=== PATIENT | female | born 1960 | race Caucasian/White ===

== ENCOUNTER 2020-12-11 10:21 | Emergency (ER) | payer OTHER, SELFPAY ==
[2020-12-11 10:33] VITALS: BP 187/96; PULSE 73; RESP 16; TEMP 36.6; O2SAT 99; BMI 23.6
[2020-12-11 11:50] LABS: Add Manual Diff / Slide Review NO; Basophils Absolute Auto 100 /uL (0-100); Basophils Percent Auto 0.9 % (0-2); Eosinophils Absolute Auto 0 /uL (0-450); Eosinophils Percent Auto 0.6 % (2-4); Hematocrit 45.4 % (36-46); Hemoglobin 15.2 g/dL (12.0-16.0); Lymphocytes Absolute Auto 1400 /uL (1100-4500); Lymphocytes Percent Auto 20.3 % (25-40); Mean Corpuscular HGB Conc 33.4 % (30-36); Mean Corpuscular Hemoglobin 28.1 PG (26-34); Mean Corpuscular Volume 84.1 fL (80-100); Monocytes Absolute Auto 600 /uL (0-900); Monocytes Percent Auto 8.9 % (3-14); Neutrophils Absolute Auto 4700 /uL (1500-7000); Neutrophils Percent Auto 69.3 % (50-75); Platelet Count 282 X10^3/uL (150-400); Red Cell Distribution Width 12.9 % (11.6-14.8); White Blood Cell Count 6.7 X10^3/uL (4.5-11.0)
[2020-12-11 11:55] LABS: INR 1.1 (0.9-1.3); Prothrombin Time 12.3 SECONDS (10.1-12.7)
[2020-12-11 11:58] LABS: PTT Partial Thromboplastin Tim 34 SECONDS (26.4-36.2)
[2020-12-11 12:02] LABS: Alanine Aminotransferase 25 IU/L (<35); Albumin 4.6 g/dL (3.5-5.0); Albumin Globulin Ratio 1.4 (1.0-2.8); Alkaline Phosphatase 95 U/L (38-126); Aspartate Aminotransferase 37 IU/L (14-36); BUN Creatinine Ratio 16.7 (6-22); Bilirubin Total 0.7 mg/dL (0.2-1.3); Blood Urea Nitrogen 12 mg/dL (7-17); Calcium 9.6 mg/dL (8.4-10.2); Carbon Dioxide 27 mmol/L (22-32); Chloride 102 mmol/L (98-107); Estimated Glomerular Filt Rate > 60.0 mL/min (>60); Globulin 3.2 g/dL (1.7-4.1); Glucose 107 mg/dL (80-110); HEMOLYSIS 18 (0-50); Lipase 104 U/L (23-300); Potassium 3.7 mmol/L (3.4-5.1); Sodium 137 mmol/L (137-145); Total Protein 7.8 g/dL (6.3-8.2)
--- NOTE | 2020-12-11 12:51 | DI.CT.S_ITS ---
PROCEDURE: CT ABDOMEN PELVIS W CON INDICATIONS: rlq pain at night TECHNIQUE: After the administration of intravenous contrast, 5 mm thick sections acquired from the diaphragm to the symphysis. 5 mm coronal and sagittal reformats were acquired. For radiation dose reduction, the following was used: automated exposure control, adjustment of mA and/or kV according to patient size. COMPARISON: None. FINDINGS: Image quality: Excellent. ABDOMEN: Lung bases: Lung bases are clear. Heart size is normal. Solid organs: Liver is diffusely decreased in attenuation without focal mass lesion.. Gallbladder unremarkable. Biliary system is non dilated. Pancreas enhances normally. Spleen is normal in size and enhancement. No adrenal nodules. Kidneys demonstrate normal size and enhancement, without hydronephrosis. Small 8 mm right renal cortical cyst. Peritoneum and bowel: Bowel loops demonstrate normal wall thickness and caliber. No free fluid or air. Normal appendix identified. Nodes and vessels: No retroperitoneal or mesenteric adenopathy by size criteria. Aorta and inferior vena cava are normal in size. Miscellaneous: No ventral hernias. PELVIS: Genitourinary: Bladder wall thickness is normal. Miscellaneous: No inguinal hernias or adenopathy. Bones: No suspicious bony lesions. No vertebral body compression fractures. L4-5 and L5-S1 degenerative disc disease and endplate sclerosis noted IMPRESSION: No acute CT abdominal or pelvic findings. Normal appendix noted without evidence of appendicitis. Incidental hepatic fatty infiltration and degenerative disc disease and lower lumbar spine Dictated by: Tim Zarate M.D. on 12/11/2020 at 12:35 Approved by: Tim Zarate M.D. on 12/11/2020 at 12:42
--- NOTE | 2020-12-11 14:36 | ED.ABDPAIN ---
HPI - Abdominal Pain <CRISTIAN Lopez - Last Filed: 12/11/20 15:10> General Chief Complaint: Abdominal Pain Stated Complaint: right side pain Time Seen by Provider: 12/11/20 12:11 Source: patient Mode of arrival: Ambulatory Limitations: no limitations History of Present Illness HPI narrative: The patient is a 60-year-old female nonsmoker denies pertinent medical history presents with a chief complaint of right lower quadrant pain at night only. She states this started on , she has severe pain at night only in her right lower quadrant and that is pain-free during the day. She has not taken anything for the pain she denies any fevers nausea vomiting or diarrhea. She denies any abdominal surgical history she denies any dysuria urgency or frequency. She denies any fevers muscle aches or chills. She states she does not go see a primary care provider and avoids medical care. She comes in with a friend who works as an EMT who ?dragged me here. Related Data Home Medications Medication Instructions Recorded Confirmed No Known Home Medications 12/11/20 12/11/20 Allergies Allergy/AdvReac Type Severity Reaction Status Date / Time oxycodone Allergy Intermediate Vomiting Verified 12/11/20 10:37 Review of Systems <BERTRAND Lopez - Last Filed: 12/11/20 15:10> Review of Systems Narrative: GENERAL: Denies chills, fatigue, malaise, fever, sweats. HEENT: Denies sinus pain, ear pain, sore throat, difficulty swallowing, dizziness. RESPIRATORY: Denies dyspnea, cough, wheezing, hemoptysis, sputum. CARDIOVASCULAR: Denies chest pain, palpitations, orthopnea, edema, GASTROINTESTINAL: See HPI : Denies dysuria, frequency, incontinence, hematuria, urinary retention. MUSCULOSKELETAL: denies weakness, joint pain, or bony pain SKIN: Denies rash, skin lesions, or other NEUROLOGIC: Denies weakness, headache, numbness, change in speech, confusion, seizures, incoordination. PSYCHIATRIC: No concerning psychosocial issues. 12 point review of systems is negative except for those stated above Patient History <BERTRAND Lopez - Last Filed: 12/11/20 15:10> Social History Smoking Status: Never smoker Smoking Status: Never smoker alcohol intake frequency: 0-2 drinks per day Substance Use Type: does not use Exam <CRISTIAN Lopez - Last Filed: 12/11/20 15:10> Narrative Exam Narrative: GENERAL: This is a well-nourished, well-developed patient, in no acute distress HEAD: Atraumatic. Normocephalic. No temporal or scalp tenderness. EYES: Pupils equal round and reactive. Extraocular motions intact. No scleral icterus. No injection or drainage. ENT: Nose without bleeding, purulent drainage or septal hematoma.. Airway patent. NECK: Trachea midline. No JVD or lymphadenopathy. Supple, nontender, no meningeal signs. CARDIOVASCULAR: Regular rate and rhythm RESPIRATORY: Clear to auscultation. Breath sounds equal bilaterally. No wheezes, rales, or rhonchi. No cough. No increased respiratory effort. No accessory muscle use. GASTROINTESTINAL: Abdomen soft, non-tender, nondistended. No hepato-splenomegaly, or palpable masses. No guarding. Active bowel sounds all 4 quadrants negative Pak sign EXTREMITIES: No clubbing, cyanosis, or edema. No joint tenderness, effusion, or edema noted. BACK: Nontender without deformity or crepitance. No flank tenderness. No CVA tenderness. NEURO: AOx3. SKIN: No rash or erythema on visible skin Initial Vital Signs Initial Vital Signs: Vital Signs Temperature 97.8 F 12/11/20 10:33 Pulse Rate 73 12/11/20 10:33 Respiratory Rate 16 12/11/20 10:33 Blood Pressure 187/96 H 12/11/20 10:33 Pulse Oximetry 99 12/11/20 10:33 <Tamar Quintanilla DO - Last Filed: 12/11/20 19:46> Initial Vital Signs Initial Vital Signs: Vital Signs Temperature 97.8 F 12/11/20 10:33 Pulse Rate 73 12/11/20 10:33 Respiratory Rate 16 12/11/20 10:33 Blood Pressure 187/96 H 12/11/20 10:33 Pulse Oximetry 99 12/11/20 10:33 Scores <CRISTIAN Lopez - Last Filed: 12/11/20 15:10> GCS [place] coma scale eye opening: Spontaneous [place] coma scale verbal response: Orientated [place] coma scale motor response: Obey commands [place] coma scale total score: 15 Course <CRISTIAN Lopez - Last Filed: 12/11/20 15:10> Orders Ordered: ED Orders 12/11/20 11:31 EKG-12 Lead Stat 12/11/20 11:40 Complete Blood Count AUTO DIFF Stat Comprehensive Metabolic Panel Stat Lipase Stat Partial Thromboplastin Time Stat Prothrombin Time INR Stat 12/11/20 12:51 CT abdomen pelvis w con Stat Vital Signs Vital signs: Vital Signs - 8 hr 12/11/20 14:52 Temperature 98.8 F Pulse Rate 78 Respiratory Rate 16 Blood Pressure 132/86 Pulse Oximetry 96 <Tamar Quintanilla DO - Last Filed: 12/11/20 19:46> Orders Ordered: ED Orders 12/11/20 11:31 EKG-12 Lead Stat 12/11/20 11:40 Complete Blood Count AUTO DIFF Stat Comprehensive Metabolic Panel Stat Lipase Stat Partial Thromboplastin Time Stat Prothrombin Time INR Stat 12/11/20 12:51 CT abdomen pelvis w con Stat Vital Signs Vital signs: Vital Signs - 8 hr 12/11/20 14:52 Temperature 98.8 F Pulse Rate 78 Respiratory Rate 16 Blood Pressure 132/86 Pulse Oximetry 96 MDM - Abdominal Pain <INDER Lopez-BC - Last Filed: 12/11/20 15:10> Lab Data Attestation: I reviewed the patient's lab results. Result diagrams: 12/11/20 11:40 12/11/20 11:40 Labs: Lab Results 12/11/20 12/11/20 12/11/20 Range/Units 11:40 11:40 11:40 WBC 6.7 (4.5-11.0) X10^3/uL RBC 5.40 H (4.0-5.2) X10^6/uL Hgb 15.2 (12.0-16.0) g/dL Hct 45.4 (36-46) % MCV 84.1 (80-100) fL MCH 28.1 (26-34) PG MCHC 33.4 (30-36) % RDW 12.9 (11.6-14.8) % Plt Count 282 (150-400) X10^3/uL Neut % (Auto) 69.3 (50-75) % Lymph % (Auto) 20.3 L (25-40) % Cataño % (Auto) 8.9 (3-14) % Eos % (Auto) 0.6 L (2-4) % Baso % (Auto) 0.9 (0-2) % Neut # (Auto) 4700 (2832-3504) /uL Lymph # (Auto) 1400 (2846-2792) /uL [place]ata[place] # (Auto) 600 (0-900) /uL Eos # (Auto) 0 (0-450) /uL Baso # (Auto) 100 (0-100) /uL PT 12.3 (10.1-12.7) SECONDS INR 1.1 (0.9-1.3) APTT 34 (26.4-36.2) SECONDS Sodium 137 (137-145) mmol/L Potassium 3.7 (3.4-5.1) mmol/L Chloride 102 (98-107) mmol/L Carbon Dioxide 27 (22-32) mmol/L BUN 12 (7-17) mg/dL Creatinine 0.72 (0.52-1.04) mg/dL Estimated GFR > 60.0 (>60) mL/min BUN/Creatinine Ratio 16.7 (6-22) Glucose 107 (80-110) mg/dL Calcium 9.6 (8.4-10.2) mg/dL Total Bilirubin 0.7 (0.2-1.3) mg/dL AST 37 H (14-36) IU/L ALT 25 (<35) IU/L Alkaline Phosphatase 95 (38-126) U/L Total Protein 7.8 (6.3-8.2) g/dL Albumin 4.6 (3.5-5.0) g/dL Globulin 3.2 (1.7-4.1) g/dL Albumin/Globulin Ratio 1.4 (1.0-2.8) Lipase 104 (23-300) U/L Point of care testing: Urine Dip Bedside Urine Glucose Negative Bedside Urine Bilirubin - Negative Bedside Urine Ketone - Negative Urine Specific [place] 1.015 Bedside Urine Occult Blood - Negative Bedside Urine pH 6 Bedside Urine Protein - Negative Bedside Urine Urobilinogen - Negative Bedside Urine Nitrite - Negative Bedside Urine Leukocytes - Negative Esterase Imaging Data CT scan - abdomen/pelvis: Radiologist's Impression: [address] [place] [address] [id number] Scan ReportSigned Patient: Zenia Ramires [facility]#: [id number]: 1960Acct:[id number]/Sex: 60 / FDate of Service: 12/11/20Loc: EDAccession Number: [id number] Procedure: CT abdomen pelvis w con Ordering Provider: Colette ParraBC PROCEDURE: CT ABDOMEN PELVIS W CON INDICATIONS: rlq pain at night TECHNIQUE: After the administration of intravenous contrast, 5 mm thick sections acquired from the diaphragm to the symphysis. 5 mm coronal and sagittal reformats were acquired. For radiation dose reduction, the following was used: automated exposure control, adjustment of mA and/or kV according to patient size. COMPARISON: None. FINDINGS: Image quality: Excellent. ABDOMEN: Lung bases: Lung bases are clear. Heart size is normal. Solid organs: Liver is diffusely decreased in attenuation without focal mass lesion.. Gallbladder unremarkable. Biliary system is non dilated. Pancreas enhances normally. Spleen is normal in size and enhancement. No adrenal nodules. Kidneys demonstrate normal size and enhancement, without hydronephrosis. Small 8 mm right renal cortical cyst. Peritoneum and bowel: Bowel loops demonstrate normal wall thickness and caliber. No free fluid or air. Normal appendix identified. Nodes and vessels: No retroperitoneal or mesenteric adenopathy by size criteria. Aorta and inferior vena cava are normal in size. Miscellaneous: No ventral hernias. PELVIS: Genitourinary: Bladder wall thickness is normal. Miscellaneous: No inguinal hernias or adenopathy. Bones: No suspicious bony lesions. No vertebral body compression fractures. L4-5 and L5-S1 degenerative disc disease and endplate sclerosis noted IMPRESSION: No acute CT abdominal or pelvic findings. Normal appendix noted without evidence of appendicitis. Incidental hepatic fatty infiltration and degenerative disc disease and lower lumbar spine Dictated by: Tim Zarate M.D. on 12/11/2020 at 12:35 Approved by: Tim Zarate M.D. on 12/11/2020 at 12:42 [facility] Narrative Medical decision making narrative: The patient is a 60-year-old female who presents with a chief complaint of right lower quadrant pain at night. She is pain-free during my exam. Her lab work is grossly normal. Given her lack of primary care provider care, I did get a CT scan of her abdomen which showed no acute findings and help rule out appendicitis, underlying visible malignancy. She is pain-free, hemodynamically stable throughout her stay in the emergency department. I did highly encourage her to follow up with primary care provider she may benefit from primary care, colonoscopy etcetera. I did discuss that she can come back to the emergency department for any acute concerns such as severe pain to keep down fluids etcetera. Patient has no questions or concerns upon discharge states understanding return precautions as well as follow-up care. <Tamar Quintanilla, DO - Last Filed: 12/11/20 19:46> Lab Data Labs: Lab Results 12/11/20 12/11/20 12/11/20 Range/Units 11:40 11:40 11:40 WBC 6.7 (4.5-11.0) X10^3/uL RBC 5.40 H (4.0-5.2) X10^6/uL Hgb 15.2 (12.0-16.0) g/dL Hct 45.4 (36-46) % MCV 84.1 (80-100) fL MCH 28.1 (26-34) PG MCHC 33.4 (30-36) % RDW 12.9 (11.6-14.8) % Plt Count 282 (150-400) X10^3/uL Neut % (Auto) 69.3 (50-75) % Lymph % (Auto) 20.3 L (25-40) % Cataño % (Auto) 8.9 (3-14) % Eos % (Auto) 0.6 L (2-4) % Baso % (Auto) 0.9 (0-2) % Neut # (Auto) 4700 (9386-1208) /uL Lymph # (Auto) 1400 (0844-6602) /uL Cataño # (Auto) 600 (0-900) /uL Eos # (Auto) 0 (0-450) /uL Baso # (Auto) 100 (0-100) /uL PT 12.3 (10.1-12.7) SECONDS INR 1.1 (0.9-1.3) APTT 34 (26.4-36.2) SECONDS Sodium 137 (137-145) mmol/L Potassium 3.7 (3.4-5.1) mmol/L Chloride 102 (98-107) mmol/L Carbon Dioxide 27 (22-32) mmol/L BUN 12 (7-17) mg/dL Creatinine 0.72 (0.52-1.04) mg/dL Estimated GFR > 60.0 (>60) mL/min BUN/Creatinine Ratio 16.7 (6-22) Glucose 107 (80-110) mg/dL Calcium 9.6 (8.4-10.2) mg/dL Total Bilirubin 0.7 (0.2-1.3) mg/dL AST 37 H (14-36) IU/L ALT 25 (<35) IU/L Alkaline Phosphatase 95 (38-126) U/L Total Protein 7.8 (6.3-8.2) g/dL Albumin 4.6 (3.5-5.0) g/dL Globulin 3.2 (1.7-4.1) g/dL Albumin/Globulin Ratio 1.4 (1.0-2.8) Lipase 104 (23-300) U/L Point of care testing: Urine Dip Bedside Urine Glucose Negative Bedside Urine Bilirubin - Negative Bedside Urine Ketone - Negative Urine Specific [place] 1.015 Bedside Urine Occult Blood - Negative Bedside Urine pH 6 Bedside Urine Protein - Negative Bedside Urine Urobilinogen - Negative Bedside Urine Nitrite - Negative Bedside Urine Leukocytes - Negative Esterase Discharge Plan Departure Patient Disposition: Home Clinical Impression: Abdominal pain Qualifiers: Abdominal location: right lower quadrant Qualified Code(s): R10.31 - Right lower quadrant pain Instructions: DI for Abdominal Pain-Adult Activity Restrictions/Additional Instructions: Thank you for trusting us with your care today As discussed, your lab work resulted very reassuring. Your CT had no acute findings. Your gallbladder was unremarkable. Your appendix is no evidence of appendicitis. Your spleen is normal. Your pancreas appears normal. Regarding her pain, you can try conservative measures such as ice, heat, [id number] medications such as acetaminophen or ibuprofen As discussed, please follow-up with primary care provider. I have given you contact information to the [facility] health chief resource officer, who can help you identify PCP accepting new patients in the area. As discussed, please come back to the emergency department for any acute concerns such as inability keep down fluids, intolerable pain etcetera. Prescriptions: No Action No Known Home Medications RF: 0 Referrals: [facility] [Outside] <Tamar Quintanilla DO - Last Filed: 12/11/20 19:46> Cosign ED Attending Kariature Attestation: I was immediately available in the department for consultation. Documentation has been reviewed. I agree with assessment and plan.
[2020-12-11 14:52] VITALS: BP 132/86; PULSE 78; RESP 16; TEMP 37.1; O2SAT 96
== END 2020-12-11 14:54 | disposition home or self-care (01) ==
PROVIDERS: Emergency Medicine; Emergency Provider Nurse Practitioner Family
DX: R10.31 Right lower quadrant pain (principal)
CPT/HCPCS: 36415; 74177; 80053; 81003; 83690; 85025; 85610; 85730; 93005; 93010; 99284